=== PATIENT | male | born 1960 | race Caucasian/White ===

== ENCOUNTER 2019-01-06 18:46 | Emergency (ER) | payer MEDICAID ==
[~2019-01-06] VITALS: Ht 180.3 cm; Wt 100.0 kg
[~2019-01-06 18:46] MED LIST: AMLO-361 PO
[2019-01-06] MEDS ORDERED: ondansetron/PF 4mg/2ml inj IV ONE (18:50)
[2019-01-06] MEDS ORDERED: ketorolac tromethamine 15mg/ml inj. IV ONE (18:50)
[2019-01-06] MEDS ORDERED: morphine 4 MG/ML inj SYRINge IV PRN (18:50)
[2019-01-06] MEDS ORDERED: normal saline 1000ML IV soln IVB ONE ×2 (18:50→20:35)
--- NOTE | 2019-01-06 19:02 | NUR ---
SPOKE WITH [facility] [facility] ABOUT TORADOL ORDER, PT RECEIVED 30MG TORADOL EN ROUTE TO ER BY EMS. O[facility]FS GAVE VERBAL ORDER TO DC HIS ORDERED 15MG TORADOL. ORDER CANCELLED
--- NOTE | 2019-01-06 19:05 | NUR ---
ATTEMPTED TO OBTAIN UA. PT STATES "I CANT I WENT RIGHT BEFORE I CAME HERE." WILL CONTINUE TO ATTEMPT TO OBTAIN.
[2019-01-06 19:11] LABS: BASOPHILS % (AUTO) 0.5 % (0-1); EOSINOPHILS # (AUTO) 0.1 X10'3 (0-0.9); HEMATOCRIT 43.2 % (42.0-52.0); HEMOGLOBIN 15.1 g/dl (14.0-17.9); LYMPHOCYTES # (AUTO) 1.4 X10'3 (1.1-4.8); LYMPHOCYTES % (AUTO) 14.8 % (21-51); MEAN CORPUSCULAR HEMOGLOBIN 29.5 PG (27.0-31.0); MEAN CORPUSCULAR HGB CONC 34.9 g/dL (33.0-36.5); MEAN CORPUSCULAR VOLUME 84.7 FL (78-98); MEAN PLATELET VOLUME 7.7 FL (7.4-10.4); MONOCYTES # (AUTO) 0.6 X10'3 (0-0.9); MONOCYTES % (AUTO) 6.6 % (2-12); NEUTROPHILS # (AUTO) 7.5 X10'3 (1.8-7.7); NEUTROPHILS % (AUTO) 77.1 % (42-75); PLATELET COUNT 240 X10'3 (140-440); RED CELL DISTRIBUTION WIDTH 13.1 % (11.5-14.5); WHITE BLOOD COUNT 9.7 X10'3 (4.5-11.0)
[2019-01-06 19:24] LABS: ALANINE AMINOTRANSFERASE 61 U/L (12-78); ALBUMIN 3.9 G/DL (3.4-5.0); ALBUMIN/GLOBULIN RATIO 0.9 (1.1-1.5); ALKALINE PHOSPHATASE 90 IU/L (46-116); ANION GAP 7 (8-16); ASPARTATE AMINO TRANSFERASE 44 U/L (10-37); BILIRUBIN,TOTAL 0.2 MG/DL (0.1-1.0); BLOOD UREA NITROGEN 29 MG/DL (7-18); CALCIUM 9.6 MG/DL (8.5-10.1); CHLORIDE 104 MMOL/L (99-107); CREATININE 1.38 MG/DL (0.60-1.10); GLUCOSE 137 MG/DL (70-104); LIPASE 145 U/L (73-393); POTASSIUM 3.8 MMOL/L (3.5-5.1); SODIUM 141 MMOL/L (135-145); TOTAL CARBON DIOXIDE 29.9 MMOL/L (24-32); TOTAL PROTEIN 8.1 G/DL (6.4-8.2); eGFR 53 ML/MIN
--- NOTE | 2019-01-06 20:28 | NUR ---
ATTEMPTED TO OBTAIN UA FROM PT, PT STATES HE'S STILL UNABLE. AWARE.
[2019-01-06 20:56] VITALS: BP 168/101
[2019-01-06] MEDS ORDERED: FLO0.4C PO (20:59)
[2019-01-06] MEDS ORDERED: HYDR-3973 PO (20:59)
[2019-01-06] MEDS ORDERED: ONDA4TAB12 PO (20:59)
[2019-01-06] MEDS ORDERED: tamsulosin 0.4mg capsule PO SCH (21:00)
[2019-01-06] MEDS ORDERED: morphine 4 MG/ML inj SYRINge IV ONE (21:05)
[2019-01-06 21:07] LABS: CLARITY,URINE CLEAR (Clear); COLOR,URINE YELLOW (Yellow); GLUCOSE, URINE 100 mg/dl (Neg); KETONES,URINE NEGATIVE (Neg); LEUKOCYTE ESTERASE ,URINE NEGATIVE (Neg); NITRITES, URINE NEGATIVE (Neg); OCCULT BLOOD,URINE NEGATIVE (Neg); PH,URINE 8.5 (4.8-8.0); PROTEIN,URINE NEGATIVE (Neg); UROBILINOGEN,URINE 0.2 E.U/dL (0.2-1.0)
[2019-01-06 21:14] LABS: UA COLLECTION TYPE NON-SPECIFIED
== END 2019-01-06 21:31 | disposition home or self-care (01) ==
LOC: ER 18:47
DX: N20.0 Calculus of kidney (principal); I10 Essential (primary) hypertension; F12.90 Cannabis use, unspecified, uncomplicated; Z87.891 Personal history of nicotine dependence; Z88.5 Allergy status to narcotic agent; Z79.899 Other long term (current) drug therapy
CPT/HCPCS: 36415; 74176; 80053; 81003; 83690; 85025; 96374; 96375; 96376; 99284; J1885; J2270; J2405; J7030